=== PATIENT | female | born 1970 | race Caucasian/White ===

== ENCOUNTER 2019-02-12 04:43 | Emergency (ER) | payer OTHER, SELFPAY ==
[2019-02-12 04:48] VITALS: BMI 27.4
--- NOTE | 2019-02-12 04:48 | DI.RAD.S_ITS ---
PROCEDURE: XR CHEST 1V INDICATIONS: chest pain TECHNIQUE: One view of the chest was acquired. COMPARISON: None. FINDINGS: Surgical changes and devices: None. Lungs and pleura: Lungs are clear. No pleural effusions or pneumothorax. Mediastinum: Mediastinal contours appear normal. Heart size is normal. Bones and chest wall: No suspicious bony lesions. Overlying soft tissues appear unremarkable. IMPRESSION: No acute cardiopulmonary disease. Dictated by: Eli Gupta M.D. on 02/12/2019 at 9:00 Approved by: Eli Gupta M.D. on 02/12/2019 at 9:00
[2019-02-12 04:55] VITALS: BP 150/81; PULSE 95; RESP 20; TEMP 36.6; O2SAT 100
[2019-02-12] MEDS: ASPIRIN 81 MG TAB 324 MG PO (04:59)
[2019-02-12] MEDS: KETOROLAC 60 MG/2 ML VIAL 15 MG IV (04:59)
[2019-02-12] MEDS: SODIUM CHLORIDE 0.9% 1,000 ML 150 ML IV (04:59)
[2019-02-12 05:00] LABS: Add Manual Diff / Slide Review NO; Basophils Absolute Auto 0 /uL (0-100); Basophils Percent Auto 0.6 % (0-2); Eosinophils Absolute Auto 100 /uL (0-450); Hematocrit 36.7 % (36-46); Hemoglobin 12.5 g/dL (12.0-16.0); Lymphocytes Absolute Auto 2800 /uL (1100-4500); Lymphocytes Percent Auto 43.8 % (25-40); Mean Corpuscular Hemoglobin 29.8 PG (26-34); Mean Corpuscular Volume 87.8 fL (80-100); Monocytes Absolute Auto 500 /uL (0-900); Monocytes Percent Auto 8.5 % (3-14); Neutrophils Absolute Auto 2900 /uL (1500-7000); Neutrophils Percent Auto 45.1 % (50-75); Platelet Count 297 X10^3/uL (150-400); Red Blood Cell Count 4.18 X10^6/uL (4.0-5.2); Red Cell Distribution Width 13.2 % (11.6-14.8); White Blood Cell Count 6.4 X10^3/uL (4.5-11.0)
--- NOTE | 2019-02-12 05:05 | ED_ITS ---
HPI - Chest Pain General Chief Complaint: Chest Pain Stated Complaint: Chest pain Time Seen by Provider: 02/12/19 04:44 Source: patient and family Mode of arrival: ambulatory Limitations: no limitations History of Present Illness HPI narrative: 48-year-old female nonsmoker with strong family history of cardiac disease presents with a chief complaint of sharp and stabbing anterior chest pain that woke her from sleep at about 3 this morning. She states it is worse with a big deep breath. She denies any radiation of her pain. She denies any nausea, vomiting, shortness of breath or cough. She denies use of control, recent travel or history of blood clot. She has been working heavily in her expansive property. Just yesterday she and her just moved two truckloads of [employer] [place]. She denies cardiac equivalent such as dizziness, weakness, lightheadedness, shortness of breath, diaphoresis, nausea, vomiting. She denies any radiation of the pain MD complaint: chest pain Onset (ago): hour(s) Duration: intermittent Onset: during rest Pain location: substernal Severity: moderate Quality: sharp Pain radiation: none Relieving factors: nothing Exacerbating factors: inspiration and palpation Treatments prior to arrival chest pain: none Related Data On Oral Contraceptives: No Home Medications Medication Instructions Recorded Confirmed [ESTROVEN] #0 02/21/17 cholecalciferol (vitamin D3) PO QDAY #0 02/21/17 [Vitamin D3] cyanocobalamin (vitamin B-12) PO QDAY #0 02/21/17 [Vitamin B-12] multivitamin [Multiple Vitamins] 1 tab PO QDAY #0 02/21/17 topiramate [Topamax] 25 mg PO #0 02/21/17 meloxicam [Mobic] PO AMCC #0 02/26/17 oxycodone-acetaminophen 2 tab PO Q4HP PRN #0 02/26/17 Previous Rx's Medication Instructions Recorded hydrocodone-acetaminophen 0 tab PO Q6HP PRN #15 tab 02/21/17 ketorolac 10 mg PO Q6H PRN #14 tab 02/12/19 Allergies Allergy/AdvReac Type Severity Reaction Status Date / Time No Known Allergies Allergy Uncoded 12/11/17 12:19 Review of Systems Constitutional Denies chills, Denies fever(s), Denies lethargy and Denies weakness Eyes Denies change in vision, Denies eye discharge, Denies irritation and Denies loss of vision ENT Ears, Nose, Mouth, and Throat: Denies change in voice, Denies neck pain and Denies sore throat Cardiovascular Reports chest pain, Denies irregular heart rhythm, Denies lightheadedness, Denie s palpitations, Denies dyspnea, Denies dyspnea on exertion and Denies orthopnea Respiratory Denies cough, Denies dyspnea, Denies dyspnea on exertion and Denies wheezing Gastrointestinal Gastrointestinal: Denies abdominal pain, Denies change in bowel habits, Denies diarrhea, Denies nausea and Denies vomiting Genitourinary Denies hematuria, Denies flank pain, Denies urinary incontinence and Denies urinary urgency Musculoskeletal Denies neck pain Integumentary/Breasts Denies pruritus, Denies erythema, Denies rash and Denies wounds Neurologic Denies confusion, Denies loss of vision and Denies weakness Psychiatric Denies anxiety, Denies confusion, Denies depression, Denies homicidal ideation and Denies suicidal ideation Endocrine Denies palpitations Hematologic/Lymphatic Denies easy bruising Allergic/Immunologic Denies wheezing REPLACED BY [facility] Social History Smoking Status: Former smoker Social History Smoking Status: Former smoker Exam Narrative Exam Narrative: GENERAL: 48-year-old female anxious, tearful uncomfortable HEAD: Atraumatic. Normocephalic. No temporal or scalp tenderness. EYES: Pupils equal round and reactive. Extraocular motions intact. No scleral icterus. No injection or drainage. ENT: Nose without bleeding, purulent drainage or septal hematoma. Throat without erythema, tonsillar hypertrophy or exudate. Uvula midline. Airway patent. NECK: Trachea midline. No JVD or lymphadenopathy. Supple, nontender, no meningeal signs. CARDIOVASCULAR: Patient has reproducible anterior chest pain to palpation, deep breath and motion Regular rate and rhythm without murmurs, gallops, or rubs. RESPIRATORY: Clear to auscultation. Breath sounds equal bilaterally. No wheezes, rales, or rhonchi. GASTROINTESTINAL: Abdomen soft, non-tender, nondistended. No hepato- splenomegaly, or palpable masses. No guarding. EXTREMITIES: No clubbing, cyanosis, or edema. No joint tenderness, effusion, or edema noted. BACK: Nontender without deformity or crepitance. No flank tenderness. NEURO: AOx3. SKIN: No rash or erythema. Initial Vital Signs Initial Vital Signs: Vital Signs Temperature 97.9 F 02/12/19 04:55 Pulse Rate 95 H 02/12/19 04:55 Respiratory Rate 20 02/12/19 04:55 Blood Pressure 150/81 H 02/12/19 04:55 Pulse Oximetry 100 02/12/19 04:55 Scores HEART Score Heart Score history: Slightly Suspicious Heart Score EKG: Normal Heart Score Age: 45-64 years old Heart Score risk factors: No known risk factors Heart Score troponin: < or = to normal limit Heart Score Total: 1 Course Orders Ordered: ED Orders 02/12/19 04:15 Complete Blood Count AUTO DIFF Stat Comprehensive Metabolic Panel Stat Lipase Stat Troponin & CK Cardiac Panel Stat 02/12/19 04:48 XR chest 1V Stat EKG-12 Lead Stat Sodium Chloride (Normal Saline 0.9%) 1,000 mls @ 150 mls/hr IV CONT FCO Last Admin: 02/12/19 04:59 Dose: 150 mls/hr Discontinued Medications Aspirin (Aspirin Chew) 324 mg PO NOW ONE Stop: 02/12/19 04:48 Last Admin: 02/12/19 04:59 Dose: 324 mg Ketorolac Tromethamine (Toradol) 15 mg IV NOW ONE Stop: 02/12/19 04:48 Last Admin: 02/12/19 04:59 Dose: 15 mg Vital Signs - 8 hr 02/12/19 04:55 Temperature 97.9 F Pulse Rate 95 H Respiratory Rate 20 Blood Pressure [Left Arm] 150/81 H Pulse Oximetry 100 MDM - Chest Pain Lab Data Result diagrams: 02/12/19 04:15 02/12/19 04:15 Lab Results 02/12/19 02/12/19 Range/Units 04:15 04:15 WBC 6.4 (4.5-11.0) X10^3/uL RBC 4.18 (4.0-5.2) X10^6/uL Hgb 12.5 (12.0-16.0) g/dL Hct 36.7 (36-46) % MCV 87.8 (80-100) fL MCH 29.8 (26-34) PG MCHC 34.0 (30-36) % RDW 13.2 (11.6-14.8) % Plt Count 297 (150-400) X10^3/uL Neut % (Auto) 45.1 L (50-75) % Lymph % (Auto) 43.8 H (25-40) % [place] % (Auto) 8.5 (3-14) % Eos % (Auto) 2.0 (2-4) % Baso % (Auto) 0.6 (0-2) % Neut # (Auto) 2900 (9557-9006) /uL Lymph # (Auto) 2800 (4072-7299) /uL [place] # (Auto) 500 (0-900) /uL Eos # (Auto) 100 (0-450) /uL Baso # (Auto) 0 (0-100) /uL Sodium 141 (137-145) mmol/L Potassium 3.6 (3.4-5.1) mmol/L Chloride 105 (98-107) mmol/L Carbon Dioxide 28 (22-32) mmol/L BUN 15 (7-17) mg/dL Creatinine 0.60 (0.52-1.04) mg/dL Estimated GFR > 60.0 (>60) mL/min BUN/Creatinine Ratio 25.0 H (6-22) Glucose 99 (70-100) mg/dL Calcium 9.3 (8.4-10.2) mg/dL Total Bilirubin 0.2 (0.2-1.3) mg/dL AST 26 (14-36) IU/L ALT 23 (9-52) IU/L Alkaline Phosphatase 67 (38-126) U/L Total Creatine Kinase 63 (30-135) U/L CK-MB (CK-2) TNP CK-MB (CK-2) Rel Index TNP Troponin I < 0.012 (0.01-0.034) ng/mL Total Protein 7.3 (6.3-8.2) g/dL Albumin 4.4 (3.5-5.0) g/dL Globulin 2.9 (1.7-4.1) g/dL Albumin/Globulin Ratio 1.5 (1.0-2.8) Lipase 92 (23-300) U/L MDM Narrative Medical decision making narrative: 48-year-old female with extensive family history of cardiac disease presents with sharp and stabbing left anterior chest pain for the past few hours. She states it is worse with deep breath, palpation and moving. She denies cardiac equivalents. Her description of pain is nonischemic, EKG shows no ischemic change and troponin is negative. Cardiac disease, pulmonary embolism, and other etiologies considered. Return precautions given. Patient and had questions answered to their apparent satisfaction. Discharge Plan Departure Patient Disposition: Home Clinical Impression: Acute costochondritis Instructions: DI for Costochondritis Activity Restrictions/Additional Instructions: *You have been diagnosed with [acute chest wall pain] *What to do: *Take medications as directed *Follow up with your primary care provider in 2-3 days, call for an appointment. Let them know you were seen in the Emergency Department and that we ask that you be seen in follow up *Return to ER if you should have any new, worsening or concerning symptoms, such as [worsening pain, shortness of breath, this way, vomiting, other bothersome symptoms] Prescriptions: New ketorolac 10 mg tablet 10 mg PO Q6H PRN (Reason: pain) Qty: 14 RF: 0 No Action topiramate [Topamax] 25 MG tablet 25 mg PO Qty: 0 RF: 0 cyanocobalamin (vitamin B-12) [Vitamin B-12] 50 mcg tablet PO QDAY Qty: 0 RF: 0 multivitamin [Multiple Vitamins] 1 EACH tablet 1 tab PO QDAY Qty: 0 RF: 0 cholecalciferol (vitamin D3) [Vitamin D3] 1,000 unit tablet,chewable PO QDAY Qty: 0 RF: 0 [ESTROVEN] Qty: 0 RF: 0 hydrocodone-acetaminophen 5 MG/325 MG tablet PO Q6HP PRNQty: 15 RF: 0 meloxicam [Mobic] 7.5 mg tablet PO AMCC Qty: 0 RF: 0 oxycodone-acetaminophen 7.5 MG/325 MG tablet 2 tab PO Q4HP PRNQty: 0 RF: 0 Referrals: Rodolfo Celaya MD [Primary Care Provider] -
[2019-02-12 05:09] LABS: Alanine Aminotransferase 23 IU/L (9-52); Albumin 4.4 g/dL (3.5-5.0); Albumin Globulin Ratio 1.5 (1.0-2.8); Alkaline Phosphatase 67 U/L (38-126); Aspartate Aminotransferase 26 IU/L (14-36); Bilirubin Total 0.2 mg/dL (0.2-1.3); Blood Urea Nitrogen 15 mg/dL (7-17); Calcium 9.3 mg/dL (8.4-10.2); Carbon Dioxide 28 mmol/L (22-32); Chloride 105 mmol/L (98-107); Creatine Kinase 63 U/L (30-135); Estimated Glomerular Filt Rate > 60.0 mL/min (>60); Globulin 2.9 g/dL (1.7-4.1); Glucose 99 mg/dL (70-100); HEMOLYSIS 16 (0-50); Lipase 92 U/L (23-300); Potassium 3.6 mmol/L (3.4-5.1); Sodium 141 mmol/L (137-145); Total Protein 7.3 g/dL (6.3-8.2)
[2019-02-12 05:20] LABS: Troponin I < 0.012 ng/mL (0.01-0.034)
[2019-02-12 05:55] VITALS: BP 141/71; PULSE 76; RESP 18; O2SAT 100
--- NOTE | 2019-02-20 18:59 | PC.NURSE ---
Late entry: IV fluids started @ 0500 ended 0545, @ 150cc/ hour. No ill effect.
== END 2019-02-12 05:57 | disposition home or self-care (01) ==
PROVIDERS: Emergency Provider Emergency Medicine; PCP Family Medicine
DX: M94.0 Chondrocostal junction syndrome [Tietze] (principal); R07.9 Chest pain, unspecified
CPT/HCPCS: 71045; 80053; 82550; 83690; 84484; 85025; 93005; 96361; 96374; 99283; 99285; J1885